=== PATIENT | male | born 1995 | race Caucasian/White ===

== ENCOUNTER 2016-11-02 05:45 | Emergency (ER) | payer OTHER ==
[~2016-11-02] VITALS: Ht 177.8 cm; Wt 77.6 kg
[2016-11-02 06:05] LABS: BASO % 0.4 % (0.0-1.0); EOS # 0.2 K/mm3 (0.0-0.50); EOS % 1.6 % (0.0-3.0); LARGE UNSTAINED CELL # 0.1 K/mm3 (0.0-0.4); LARGE UNSTAINED CELL % 0.7 % (0.0-4.0); LYMPH # 1.5 K/mm3 (1.5-6.5); LYMPH % 11.6 % (24.0-44.0); MEAN CORPUSCULAR HEMOGLOBIN 31.9 pg (27.0-33.0); MEAN CORPUSCULAR HGB CONC 34.3 g/dl (32.0-36.5); MEAN CORPUSCULAR VOLUME 92.9 fl (80.0-96.0); MONO # 0.5 K/mm3 (0.0-0.8); MONO % 4.2 % (0.0-5.0); NEUTROPHILS # 9.8 K/mm3 (1.8-7.7); NEUTROPHILS % 81.5 % (36.0-66.0); PLATELET COUNT, AUTOMATED 222 k/mm3 (150-450); RED CELL DISTRIBUTION WIDTH 13.1 % (11.5-14.5)
[2016-11-02] MEDS ORDERED: NS 1,000 ML IV ONE (06:15)
[2016-11-02 06:33] LABS: ALBUMIN 5.3 GM/DL (3.2-5.2); ALBUMIN/GLOBULIN RATIO 2.04 (1.00-1.93); ALKALINE PHOSPHATASE 70 U/L (45-117); ALT/SGPT 29 U/L (12-78); ANION GAP 8 MEQ/L (8-16); AST/SGOT 27 U/L (15-37); BILIRUBIN,DIRECT 0.3 MG/DL (0.0-0.2); BLOOD UREA NITROGEN 20 MG/DL (7-18); CALCIUM LEVEL 8.9 MG/DL (8.5-10.1); CARBON DIOXIDE LEVEL 28 MEQ/L (21-32); CHLORIDE LEVEL 107 MEQ/L (98-107); CREATININE FOR GFR 1.39 MG/DL (0.70-1.30); GLOMERULAR FILTRATION RATE > 60.0 (>60); GLUCOSE, FASTING 71 MG/DL (70-105); POTASSIUM SERUM 4.1 MEQ/L (3.5-5.1); SODIUM LEVEL 143 MEQ/L (136-145); TOTAL PROTEIN 7.9 GM/DL (6.4-8.2)
[2016-11-02 07:43] LABS: METHADONE URINE NEGATIVE (NEGATIVE)
[2016-11-02] MEDS ORDERED: LORazepam 2 MG/ML VIAL (J2060) IV STA (07:50)
--- NOTE | 2016-11-02 14:28 | ECGEPIP ---
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
[2016-11-02 14:33] VITALS: BP 166/85
== END 2016-11-02 14:36 | disposition home or self-care (01) ==
LOC: EDBD 05:45 → M ED 09:32
DX: T48.3X2A Poisoning by antitussives, intentional self-harm, initial encounter (principal); Y92.9 Unspecified place or not applicable; Y93.9 Activity, unspecified; F17.200 Nicotine dependence, unspecified, uncomplicated; Z79.899 Other long term (current) drug therapy
CPT/HCPCS: 36415; 51701; 80048; 80076; 80306; 82550; 84443; 85025; 93005; 93041; 94760; 96361; 96374; 99285; G0480; J2060

== ENCOUNTER 2016-11-02 21:13 | Inpatient (IN) | payer OTHER ==
[~2016-11-02] VITALS: Ht 177.8 cm; Wt 77.2 kg
[2016-11-02] MEDS ORDERED: LORazepam 2 MG/ML VIAL (J2060) As Ordered ONE (21:35)
[2016-11-02] MEDS ORDERED: LORazepam 2 MG/ML VIAL (J2060) IV STA ×2 (21:35→22:45)
[2016-11-02] MEDS ORDERED: NS 1,000 ML IV ONE (21:45)
[2016-11-02 22:03] LABS: BASO # 0.1 K/mm3 (0.0-0.2); BASO % 0.5 % (0.0-1.0); EOS # 0.2 K/mm3 (0.0-0.50); EOS % 1.6 % (0.0-3.0); LARGE UNSTAINED CELL # 0.1 K/mm3 (0.0-0.4); LARGE UNSTAINED CELL % 1.2 % (0.0-4.0); LYMPH # 2.4 K/mm3 (1.5-6.5); LYMPH % 19.4 % (24.0-44.0); MEAN CORPUSCULAR HEMOGLOBIN 31.3 pg (27.0-33.0); MEAN CORPUSCULAR HGB CONC 33.8 g/dl (32.0-36.5); MEAN CORPUSCULAR VOLUME 92.6 fl (80.0-96.0); MONO # 0.6 K/mm3 (0.0-0.8); MONO % 5.4 % (0.0-5.0); NEUTROPHILS # 8.4 K/mm3 (1.8-7.7); PLATELET COUNT, AUTOMATED 211 k/mm3 (150-450); RED CELL DISTRIBUTION WIDTH 13.1 % (11.5-14.5); WHITE BLOOD COUNT 11.7 K/mm3 (4.0-10.0)
--- NOTE | 2016-11-02 22:10 | REPUSA ---
CLINICAL HISTORY: altered mental status TECHNIQUE: Head CT without contrast COMPARISON: No study for comparison is available at the time of interpretation. Brain: No intracranial hemorrhage, hydrocephalus, acute parenchymal edema or evident mass. Calvarium: Unremarkable. Sinuses (partially visualized): Clear. IMPRESSION: No acute intracranial findings.
[2016-11-02 22:12] LABS: ALBUMIN 4.1 GM/DL (3.2-5.2); ALBUMIN/GLOBULIN RATIO 1.71 (1.00-1.93); ALKALINE PHOSPHATASE 61 U/L (45-117); ALT/SGPT 30 U/L (12-78); ANION GAP 10 MEQ/L (8-16); AST/SGOT 42 U/L (15-37); BILIRUBIN,DIRECT 0.2 MG/DL (0.0-0.2); BILIRUBIN,TOTAL 1.8 MG/DL (0.2-1.0); BLOOD UREA NITROGEN 22 MG/DL (7-18); CARBON DIOXIDE LEVEL 26 MEQ/L (21-32); CHLORIDE LEVEL 99 MEQ/L (98-107); CREATININE FOR GFR 1.28 MG/DL (0.70-1.30); GLOMERULAR FILTRATION RATE > 60.0 (>60); GLUCOSE, FASTING 97 MG/DL (70-105); POTASSIUM SERUM 3.2 MEQ/L (3.5-5.1); SODIUM LEVEL 135 MEQ/L (136-145); TOTAL PROTEIN 6.5 GM/DL (6.4-8.2)
[2016-11-02 22:23] LABS: METHADONE URINE NEGATIVE (NEGATIVE)
[2016-11-02] MEDS ORDERED: LR 1,000 ML IV ONE (23:00)
[2016-11-02 23:18] LABS: ABG BASE EXCESS -2.4 (-2.0-2.0); ABG HCO3 22.2 MEQ/L (22.0-26.0); ABG PARTIAL PRESSURE CO2 37.8 mmHg (35.0-45.0); ABG PARTIAL PRESSURE O2 107.6 mmHg (75.0-100.0); ABG STANDARD HCO3 22.5 MEQ/L (22.0-26.0); ABG TOTAL CO2 23.3 MEQ/L (22.0-29.0); ABG pH (ARTERIAL) 7.386 UNITS (7.350-7.450)
[2016-11-02 23:29] LABS: OSMOLALITY SERUM 276 MOSM/KG (275-295)
[2016-11-03] VITALS (11 sets, daily range): BP systolic 95–162; BP diastolic 57–82
[2016-11-03] MEDS: NS 1,000 ML IV SCH ×2 (01:27→07:56)
[2016-11-03] MEDS ORDERED: KCL 10MEQ IN 100ML SWI (KRUN) 10 MEQ in APPROPRIATE DILUENT 1 EA IV ONE ×2 (05:00)
[2016-11-03] MEDS ORDERED: KCL 10MEQ IN 100ML SWI (KRUN) 10 MEQ in APPROPRIATE DILUENT 1 EA IV SCH ×2 (05:00)
[2016-11-03 05:19] LABS: BASO % 0.6 % (0.0-1.0); EOS # 0.3 K/mm3 (0.0-0.50); EOS % 3.9 % (0.0-3.0); LARGE UNSTAINED CELL # 0.1 K/mm3 (0.0-0.4); LARGE UNSTAINED CELL % 1.8 % (0.0-4.0); LYMPH # 2.4 K/mm3 (1.5-6.5); LYMPH % 30.7 % (24.0-44.0); MEAN CORPUSCULAR HEMOGLOBIN 30.9 pg (27.0-33.0); MEAN CORPUSCULAR VOLUME 93.6 fl (80.0-96.0); MONO # 0.4 K/mm3 (0.0-0.8); MONO % 5.7 % (0.0-5.0); NEUTROPHILS # 4.2 K/mm3 (1.8-7.7); NEUTROPHILS % 57.3 % (36.0-66.0); PLATELET COUNT, AUTOMATED 174 k/mm3 (150-450); RED CELL DISTRIBUTION WIDTH 13.2 % (11.5-14.5); WHITE BLOOD COUNT 7.3 K/mm3 (4.0-10.0)
--- NOTE | 2016-11-03 05:25 | HPE ---
DATE OF ADMISSION: 11/03/2016 REASON FOR ADMISSION: Dextromethorphan overdose. HISTORY OF PRESENT ILLNESS The patient is 20-year-old male from [place] who presented earlier yesterday for a Delsym overdose, stated he took two bottles of Delsym. He was observed in the emergency room per poison control's recommendation, and then he was discharged home about 10 hours later under the care of [place]. They stated they watched him all day, and he started to become more lethargic and at times agitated and combative. They brought him back into the emergency room. In the emergency room the patient was very combative and agitated requiring some four-point restraints and 4 mg of Ativan. Toxicology screen was only positive for phencyclidine. The patient was started on fluids. He was given one liter bolus of normal saline and then he was started on lactated Ringer's. After 4 mg of Ativan, the patient was sleepy and sedated, unable to provide a history. Most of the history is obtained from the emergency room (ER) records and officer who was with him, who stated that the patient just finished training. He just came yesterday. He has not from the area, has no family in the area that they know of, and that he would be able to provide me with more information in the morning. The patient has no known medical history and is not on any prescribed medications. REVIEW OF SYSTEMS: Unable to obtain at this time due to the patient's sedation. PAST MEDICAL HISTORY: None. PAST SURGICAL HISTORY: None. ALLERGIES TO MEDICATIONS: None. PRESCRIBED MEDICATIONS: None. SOCIAL HISTORY: Unknown at this time. The patient is new to [place], just came in yesterday. FAMILY HISTORY: Unknown. PHYSICAL FINDINGS: Vitals: Temperature 98.2, pulse 83, respiratory rate 22, blood pressure is 135/82, pulse oximetry 96% on room air. HEENT: Pupils equal, round, reactive. Earlier per ER record, however, when he presented with an initially from overdose, he had pinpoint pupils. CARDIAC: Regular rate and rhythm. ABDOMEN: Soft, nontender, nondistended. EXTREMITIES: No clubbing, cyanosis or edema. LABORATORY FINDINGS: WBC 11.7, hemoglobin 13.8, hematocrit 40.7, platelet count 211. Sodium 135, potassium 3.2, chloride 99, BUN 22, creatinine 1.28, lactic acid 112. Bilirubin 1.8. Troponin less than 0.02. TSH 0.64. CK was 567. IMAGING: CT of the head was done which showed no acute intracranial abnormalities. ASSESSMENT AND PLAN: 1. Delsym overdose. Poison control was contacted at first and they recommended to watch the patient and use Ativan as needed for agitation. The patient was observed for 10 hours and then he was discharged. He was brought back into the emergency room due to increased agitation and becoming more combative. In the emergency room, he was given 4 mg of Ativan. He is currently resting comfortably, arousable but not able to answer any questions. We will continue to monitor. We will use Ativan as needed for agitation, sitter in the bedside while he is altered. We will continue to monitor the patient on telemetry. We will continue IV fluids. 2. Hypokalemia. We will replace and recheck. We will order a magnesium level. 3. Deep venous thrombosis (DVT) prophylaxis. Thromboembolism deterrent stockings (TEDs) and sequentials while in bed. The patient will be seen by Dr. Valiente in the morning. SILVIA
[2016-11-03 05:40] LABS: ALBUMIN 3.3 GM/DL (3.2-5.2); ALKALINE PHOSPHATASE 56 U/L (45-117); ALT/SGPT 26 U/L (12-78); ANION GAP 8 MEQ/L (8-16); AST/SGOT 38 U/L (15-37); BILIRUBIN,TOTAL 0.9 MG/DL (0.2-1.0); BLOOD UREA NITROGEN 18 MG/DL (7-18); CALCIUM LEVEL 7.7 MG/DL (8.5-10.1); CARBON DIOXIDE LEVEL 25 MEQ/L (21-32); CHLORIDE LEVEL 108 MEQ/L (98-107); CREATININE FOR GFR 1.14 MG/DL (0.70-1.30); GLOMERULAR FILTRATION RATE > 60.0 (>60); GLUCOSE, FASTING 103 MG/DL (70-105); MAGNESIUM LEVEL 2.2 MG/DL (1.8-2.4); POTASSIUM SERUM 3.4 MEQ/L (3.5-5.1); SODIUM LEVEL 141 MEQ/L (136-145); TOTAL PROTEIN 5.5 GM/DL (6.4-8.2)
--- NOTE | 2016-11-03 06:48 | REP ---
Clinical: Foreign body. Technique: Two supine views of the abdomen and pelvis. Findings: No radiodense foreign body is appreciated. Bowel gas pattern is normal. Skeletal structures are intact. No organomegaly. No abnormal calcifications. Impression: No foreign body appreciated. Signed by Agusto Cooley MD 11/03/2016 06:39 A
[2016-11-03] MEDS ORDERED: POTASSIUM CHLORIDE 10 MEQ SR TABLET PO ONE (07:00)
--- NOTE | 2016-11-03 08:12 | ECGEPIP ---
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
[2016-11-03] MEDS ORDERED: ENOXAPARIN 40 MG/0.4 ML SYRINGE (J1650) SC SCH (09:00)
--- NOTE | 2016-11-03 14:12 | DSES ---
DATE OF ADMISSION: 11/03/2016 DATE OF DISCHARGE: 11/03/2016 Please refer the history and physical by Dr. Florencia Anthony, for full intake, physical, labs and diagnostics. Briefly, the patient was admitted for overdose on Delsym. He also tested positive for PCP. He has been in the ICU overnight with no acute events noted on telemetry. Poison Control had been spoken to previously and did not feel that this patient needed to have 24 hours of telemetry and that the Delsym has a relatively short half life. He has continued to have some behavioral issues while in the ICU otherwise he appears to be medically stable. PHYSICAL EXAMINATION: Today temperature is 98, pulse 91, respiratory rate 16, blood pressure 148/70, SpO2 is 99% on room air. GENERAL: The patient appears to be in no acute distress. He is alert, oriented, and pleasant to talk to. HEENT: Unremarkable. LUNGS: Clear. HEART: Regular rate and rhythm. ABDOMEN: Soft. EXTREMITIES: No edema, no calf tenderness. LABORATORY DATA: White count 7.3, hemoglobin 13.1, platelets 174. Sodium 141, potassium 3.4, which was supplemented, chloride 108, bicarb 25, anion gap 9, BUN is 18, creatinine 1.14, glucose 103. AST 38, ALT 26, alkaline phosphatase 56. Troponin is less than 0.02 times two. TSH 0.645. ADMISSION/DISCHARGE DIAGNOSES: 1. Overdose. 2. Illicit substance abuse. 3. Underlying behavioral health issues. 4. Hypokalemia, which was repleted. DISCHARGE CONDITION: Good. DISPOSITION: The patient will be discharged to the care of inpatient [facility] for involuntary admission. DISCHARGE MEDICATIONS: None. DISCHARGE INSTRUCTIONS: 1. Discharge to inpatient mental health for involuntary admission. 2. Activity as tolerated. 3. Regular diet. 4. Seek medical attention if symptoms should worsen.
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
== END 2016-11-03 15:31 | DRG 918 ==
LOC: EDBD 21:13 → M ED 23:22 → M ED INP 11-03 00:39 → M ICU 11-03 01:21
PROVIDERS: ADMIT Internal Medicine; ATTEND Hospitalist
DX: T43.624A Poisoning by amphetamines, undetermined, initial encounter (principal); E87.6 Hypokalemia

== ENCOUNTER 2016-11-03 15:35 | Inpatient (IN) | payer OTHER ==
[~2016-11-03] VITALS: Ht 175.3 cm; Wt 77.3 kg
[2016-11-03 15:42] VITALS: BP 148/68
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
[2016-11-03] MEDS ORDERED: NICOTINE POLACRILEX 2 MG GUM PO PRN (17:00)
[2016-11-03] MEDS ORDERED: ACETAMINOPHEN TAB 650MG DOSE (2X325MG) PO PRN (17:00)
[2016-11-03] MEDS ORDERED: MOM 30ML SUSPENSION UDC PO PRN (17:00)
[2016-11-03] MEDS ORDERED: LORazepam 1 MG TAB PO PRN (17:00)
[2016-11-03] MEDS ORDERED: MAALOX 30 ML SUSP *UDC PO PRN (17:00)
[2016-11-03] MEDS ORDERED: LORazepam 2 MG/ML VIAL (J2060) IM ONE (18:30)
[2016-11-03] MEDS ORDERED: risperiDONE 2 MG TAB PO ONE (20:45)
[2016-11-03] MEDS ORDERED: MIRTAZAPINE 15 MG TAB PO ONE (20:45)
[2016-11-03] MEDS ORDERED: risperiDONE 1 MG TAB PO SCH (21:00)
[2016-11-04 06:51] VITALS: BP 144/78
[2016-11-04] MEDS ORDERED: risperiDONE 2 MG TAB PO SCH (09:00)
[2016-11-04] MEDS ORDERED: OLANZapine 5 MG TAB PO PRN (13:15)
--- NOTE | 2016-11-04 13:28 | MHIPNPDOC ---
[facility] Progress Note Progress Note DATE OF SERVICE: 11/04/16 HISTORY: day 2 of admission The patient a 20-year-old man presented to [facility] after ingesting a large amount of Coricidin and attempt to become "high". The patient was found wandering down the highway close to [facility] around the [place] area. The patient described that he had drunk in the court is seen to "get stronger". He described that he was feeling fairly distorted and confused. He stated that he been using Coricidin for quite some time. Much of his symptoms are difficult to ascertain at times as he became very irritated and agitated. He described that he had had a fairly difficult life and use Coricidin since the age of 12 in order to treat his depressed symptoms. He described prior to taking the Coricidin he become "suicidal 16 times" but never act on it due to the" triple C's". The patient described having difficulty remembering the date and confusion about his age. VITAL SIGNS: See below. NEW TEST RESULTS: na CURRENT MEDICATIONS: See below. MENTAL STATUS EXAMINATION: Patient is a 20-year old male, who is lying in bed, sits up when asked, has difficulty remaining upright, difficulty keeping his eyes open, wearing hospital garb, clean, tattoo on right arm. Speech: Is delayed, monosyllables. barely audible. Language skills are impaired Thought processes including: mostly clear, did not express delusions, FOI. Thought content: appropriate. Abstract reasoning, and computation: unable to assess. Description of associations: unable to assess. Description of abnormal or psychotic thoughts: states he hears one voice "sometimes" then immediately changed to "everyday", would not provide details. Judgment: very limited. Insight: poor Orientation: pt did not want to participate in the interview, unable to assess. Recent and remote memory: appears good Attention span and concentration: very poor Fund of knowledge: impaired Mood: "tired". Affect: congruent DIAGNOSES: 1. Unspecified psychotic disorder Rule out substance-induced 2. Borderline personality disorder, provisional 3. Unspecified depressive disorder Rule out substance-induced 4. Hallucinogen use disorder, severe, intoxicated 5. Cannabis use disorder, severe, in sustained remission ASSESSMENT:Pt has been asleep all day. Advised at 10 a.m. that documentation writer would return at 1 p.m. for interview. Pt unable to remain awake for interview. Offered no insight as to his state of mind or goals. Did offer that he joined the "to have a purpose in life". 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 He supports statements previously noted, that he has been depressed for a long time. He uses the dextromethorphan because it "slows down" the depression. He states he hears 1 voice but would not elaborate. He appears too medicated to participate. Pt did receive treatment for mental health issues in the past in [place] and was hospitalized in the past in [place] @ [facility] (?). Will try to obtain records if we can locate the hospital. Pt was informed that we will plan a SEAN meeting for Monday or Monday. Pt has not eaten today or been out of bed. He was encouraged to have lunch. MANAGEMENT PLAN: risperidone will be reduced, agitation meds will be placed. It appears that the [employer] has no intention of retaining this individual. Per a conversation DCP had with command, he was found face down in the road and high before he ever processed in from basic training. He has a very long history of substance abuse. His history indicates depression since age of 12. He denies abuse or trauma. TIME SPENT: 25 minutes. Vital Signs Vital Signs Date Time Temp Pulse Resp B/P (MAP) Pulse Ox O2 Delivery O2 Flow Rate FiO2 11/04/16 06:51 98.9 69 16 144/78 (100) 11/03/16 15:42 98 Room Air Current Medications Current Medications Acetaminophen (Tylenol Tab) 650 mg Q6HP PRN PO HEADACHE or DISCOMFORT; Start at 17:00; Stop 12/03/16 at 16:59 Al Hydrox/Mg Hydrox/Simethicone (Mylanta) 30 ml Q4HP PRN PO HEARTBURN/ INDIGESTION; Start 11/03/16 at 17:00; Stop 12/03/16 at 16:59 Lorazepam (Ativan) 1 mg TIDP PRN PO EXTREME ANXIETY; Start 11/03/16 at 17:00; Stop 11/10/16 at 16:59 Magnesium Hydroxide (Milk Of Magnesia) 30 ml DAILYPRN PRN PO CONSTIPATION; Start 11/03/16 at 17:00; Stop 12/03/16 at 16:59 Nicotine (Nicorette) 4 mg Q2HP PRN PO NICOTINE WITHDRAWAL; Start 11/03/16 at 17 :00; Stop 12/03/16 at 16:59 Risperidone (RisperDAL) 1 mg TID PO Last administered on 11/03/16 20:09; Start 11/03/16 at 21:00; Stop 11/04/16 at 09:19; Status DC Risperidone (RisperDAL) 2 mg BID PO Last administered on 11/04/16 09:51; Start 11/04/16 at 09:00; Stop 12/03/16 at 08:59 Allergies Coded Allergies: No Known Drug Allergy (Verified Allergy, Unknown, 11/02/16) Isabel Carter November 04, 2016 13:28
[2016-11-04 18:00] VITALS: BP 125/59
[2016-11-04] MEDS ORDERED: NICOTINE 21MG/24HR 1 EA TRANSDERMAL TD SCH (21:00)
[2016-11-04] MEDS: risperiDONE 0.5 MG TAB PO SCH (21:18)
--- NOTE | 2016-11-05 00:04 | HPE ---
DATE OF ADMISSION: 11/03/2016 Please refer to psychiatric history and evaluation for further details on this admission. This examination is <<0:07>> intended for medical issues, which may need treatment, followup or consult. This 20-year-old male, who was transferred from the intensive care unit (ICU) after having been stabilized and having been treated for an overdose of <<0:20>> and his urine also had tested positive for PCP. ETOH denied. Smokes one pack of cigarettes per day and dips one can per day. Recreational drug use none. PAST MEDICAL HISTORY: Negative. PAST SURGICAL HISTORY: Negative. HOME MEDICATIONS: None. FAMILY HISTORY: Noncontributory. LABORATORY STUDIES: White blood count (WBC) 7.3, hemoglobin 13.3, hematocrit 40.3, potassium 3.4, BUN and creatine 8 and 1.14, calcium is 7.7, AST 38, CPK 403. Will recheck in the a.m. Encourage the patient to drink fluids by mouth. Electrocardiogram (EKG) shows sinus rhythm, question of a U-wave. Will recheck electrocardiogram (EKG) in the a.m. 10-systems review was done. The patient had no complaints. No chest pain, shortness of breath, palpitations. He had no complaints whatsoever, was feeling well. pupils equal and reactive to light. Extraocular movements intact. Cornea and sclera clear. Conjunctiva normal. No facial asymmetry. Pharynx, tongue, and gums pink and moist. Tongue is midline. Neck is supple without lymphadenopathy. No thyromegaly. No goiter. Carotids 2+ without bruits. Chest is clear to auscultation without wheeze or retraction. Heart is regular without murmur or gallop. Abdomen benign. Bowel sounds positive. /Rectal: Not done. Extremities show full range of motion. No cyanosis, clubbing or edema. Gait is steady. Peripheral pulses equal and palpable bilaterally. Skin is warm and dry. OBJECTIVE: 20-year-old cooperative male, in no acute distress. Height 70 inches, weight 77 kilograms, body mass index (BMI) 24. Blood pressure 120/60, pulse 55, respirations 16, temperature 99. The patient is alert and oriented times three. Pupils equal and reactive to light good. Sclerae clear. Conjunctiva clear. No facial asymmetry. Pharynx, tongue and gums pink and moist. Tongue is midline. Neck is supple without lymphadenopathy. No thyromegaly, no goiter. Carotids 2+ without bruit. Chest clear to auscultation without wheezing or retraction. Heart is regular. Abdomen benign. Bowel sounds positive. Rectal not done. Extremities show equal strength, full range of motion, no cyanosis, clubbing or edema. Peripheral pulses equal and palpable bilaterally. Skin is warm and dry. IMPRESSION/PLAN: Hypokalemia, will recheck potassium in the a.m. Elevated CPK, recheck in the a.m. Encourage hydration and fluids. Psychiatric plan per psychiatry. Smoking cessation. Pain patches on.
[2016-11-05 06:29] VITALS: BP 128/75
[2016-11-05 06:36] LABS: BASO % 0.6 % (0.0-1.0); EOS # 0.2 K/mm3 (0.0-0.50); EOS % 4.3 % (0.0-3.0); LARGE UNSTAINED CELL # 0.1 K/mm3 (0.0-0.4); LARGE UNSTAINED CELL % 1.5 % (0.0-4.0); LYMPH # 1.3 K/mm3 (1.5-6.5); LYMPH % 26.5 % (24.0-44.0); MEAN CORPUSCULAR HEMOGLOBIN 31.6 pg (27.0-33.0); MEAN CORPUSCULAR HGB CONC 33.3 g/dl (32.0-36.5); MEAN CORPUSCULAR VOLUME 94.9 fl (80.0-96.0); MONO # 0.3 K/mm3 (0.0-0.8); MONO % 4.9 % (0.0-5.0); NEUTROPHILS # 3.1 K/mm3 (1.8-7.7); NEUTROPHILS % 62.2 % (36.0-66.0); PLATELET COUNT, AUTOMATED 178 k/mm3 (150-450); RED CELL DISTRIBUTION WIDTH 12.9 % (11.5-14.5)
[2016-11-05 06:52] LABS: ALBUMIN 3.3 GM/DL (3.2-5.2); ALBUMIN/GLOBULIN RATIO 1.32 (1.00-1.93); ALKALINE PHOSPHATASE 78 U/L (45-117); ALT/SGPT 26 U/L (12-78); ANION GAP 7 MEQ/L (8-16); AST/SGOT 25 U/L (15-37); BILIRUBIN,TOTAL 0.3 MG/DL (0.2-1.0); BLOOD UREA NITROGEN 8 MG/DL (7-18); CALCIUM LEVEL 8.1 MG/DL (8.5-10.1); CARBON DIOXIDE LEVEL 29 MEQ/L (21-32); CHLORIDE LEVEL 106 MEQ/L (98-107); CREATININE FOR GFR 0.78 MG/DL (0.70-1.30); GLOMERULAR FILTRATION RATE > 60.0 (>60); GLUCOSE, FASTING 111 MG/DL (70-105); SODIUM LEVEL 142 MEQ/L (136-145); TOTAL PROTEIN 5.8 GM/DL (6.4-8.2)
[2016-11-05] MEDS ORDERED: NICOTINE 21MG/24HR 1 EA TRANSDERMAL TD ONE (07:00)
[2016-11-05] MEDS: NICOTINE POLACRILEX 2 MG GUM PO PRN ×3 (10:04→20:08)
--- NOTE | 2016-11-05 16:54 | ECGEPIP ---
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 MORE ST ELEVATION ALSO NOW NOTED Electronically Signed On 11-05-2016 16:53:47 EDT by Alonso Marshall
[2016-11-05 18:00] VITALS: BP 135/79
[2016-11-05] MEDS: risperiDONE 0.5 MG TAB PO SCH (20:08)
[2016-11-05] MEDS ORDERED: NICOTINE 21MG/24HR 1 EA TRANSDERMAL TD SCH (21:00)
--- NOTE | 2016-11-05 22:30 | IPN ---
DATE: 11/05/2016 A 20-year-old male admitted after he ingested a large amount of Coricidin. The patient was highly intoxicated. OBJECTIVE: The patient is in bed at 11 a.m., has poor eye contact, soft monotone speech, not willing to engage in conversation/evaluation. Denied side effect from the medication. MENTAL STATUS EXAMINATION: The patient is dressed in [facility]. The patient is non cooperative. Has poor eye contact. Speech is soft and monotone. Mood is depressed and anxious. Affect is restricted. No evidence of delusions or hallucinations during the interview. Insight and judgment are poor. ASSESSMENT: 1. Unspecific psychotic disorder. 2. Hallucinogen use disorder, severe. 3. Cannabis use disorder. 4. Borderline personality disorder. PLAN: 1. Continue Risperdal 0.5 mg by mouth at bedtime. 2. Continue Zyprexa 5 mg by mouth as needed. 3. Continue close observation.
[2016-11-06 06:00] VITALS: BP 151/79
[2016-11-06] MEDS: NICOTINE 21MG/24HR 1 EA TRANSDERMAL TD SCH (08:17)
[2016-11-06] MEDS ORDERED: NICOTINE 21MG/24HR 1 EA TRANSDERMAL TD SCH (09:00)
[2016-11-06 18:00] VITALS: BP 138/81
[2016-11-06] MEDS: risperiDONE 0.5 MG TAB PO SCH (20:59)
--- NOTE | 2016-11-06 21:42 | IPN ---
DATE: 11/06/2016 A 20-year-old male admitted after he ingested a large amount of Coricidin. The patient was highly intoxicated. OBJECTIVE: The patient has improved a little bit. He is now out of the room and interacting better with other patients and staff. There is no evidence of psychotic symptoms. No auditory or visual hallucinations are noted. The patient does not have psychomotor retardation. MENTAL STATUS EXAMINATION: The patient dressed in [facility]. The patient is cooperative during the interview. Has fair eye contact. Speech is normal in rate, volume. Articulation is coherent and is spontaneous. Mood is depressed and anxious but improved. Affect is congruent with mood. There is no evidence of auditory or visual hallucinations. Memory, attention and concentration are fair. The patient is able to contract for safety during the interview. Insight and judgment are limited. ASSESSMENT: 1. Unspecified psychotic disorder. 2. Hallucinogen use disorder. 3. Cannabis use disorder. 4. Borderline personality disorder. PLAN: 1. Continue with Risperdal 0.5 mg by mouth at bedtime. 2. Continue with Zyprexa as needed for agitation/anxiety. 3. Continue close observation.
[2016-11-07 06:00] VITALS: BP 130/63
[2016-11-07 06:45] LABS: BASO % 0.9 % (0.0-1.0); EOS # 0.2 K/mm3 (0.0-0.50); EOS % 4.4 % (0.0-3.0); LARGE UNSTAINED CELL # 0.2 K/mm3 (0.0-0.4); LARGE UNSTAINED CELL % 3.8 % (0.0-4.0); LYMPH # 1.7 K/mm3 (1.5-6.5); LYMPH % 35.6 % (24.0-44.0); MEAN CORPUSCULAR HEMOGLOBIN 31.7 pg (27.0-33.0); MEAN CORPUSCULAR HGB CONC 33.8 g/dl (32.0-36.5); MEAN CORPUSCULAR VOLUME 93.8 fl (80.0-96.0); MONO # 0.4 K/mm3 (0.0-0.8); MONO % 7.6 % (0.0-5.0); NEUTROPHILS # 2.3 K/mm3 (1.8-7.7); NEUTROPHILS % 47.8 % (36.0-66.0); PLATELET COUNT, AUTOMATED 220 k/mm3 (150-450); RED CELL DISTRIBUTION WIDTH 13.1 % (11.5-14.5); WHITE BLOOD COUNT 4.8 K/mm3 (4.0-10.0)
[2016-11-07 07:07] LABS: ALBUMIN 3.6 GM/DL (3.2-5.2); ALBUMIN/GLOBULIN RATIO 1.13 (1.00-1.93); ALKALINE PHOSPHATASE 74 U/L (45-117); ALT/SGPT 37 U/L (12-78); ANION GAP 5 MEQ/L (8-16); AST/SGOT 19 U/L (15-37); BILIRUBIN,TOTAL 0.3 MG/DL (0.2-1.0); BLOOD UREA NITROGEN 8 MG/DL (7-18); CALCIUM LEVEL 8.7 MG/DL (8.5-10.1); CARBON DIOXIDE LEVEL 31 MEQ/L (21-32); CHLORIDE LEVEL 104 MEQ/L (98-107); CREATININE FOR GFR 0.89 MG/DL (0.70-1.30); GLOMERULAR FILTRATION RATE > 60.0 (>60); GLUCOSE, FASTING 109 MG/DL (70-105); POTASSIUM SERUM 4.5 MEQ/L (3.5-5.1); SODIUM LEVEL 140 MEQ/L (136-145); TOTAL PROTEIN 6.8 GM/DL (6.4-8.2)
[2016-11-07] MEDS: NICOTINE 21MG/24HR 1 EA TRANSDERMAL TD SCH (08:06)
--- NOTE | 2016-11-07 16:45 | IPN ---
DATE: 11/07/2016 A 20-year-old male admitted after he ingested a large amount of Coricidin. The patient was highly intoxicated. 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 The patient is interacting well with other patients and staff and has significantly improved from admission. The patient appears to have very low insight into his drug abuse. There is no evidence of psychotic symptoms. No confusion. No behavioral disturbances. MENTAL STATUS EXAMINATION: The patient is dressed in [facility]. The patient is cooperative during the interview. He has fair eye contact. His speech is normal in rate, volume, and articulation. He is coherent and is spontaneous. Mood is depressed and anxious but improved. Affect is congruent with mood. There is no evidence of auditory or visual hallucinations or any psychotic symptoms. Memory, attention and concentration are fair. The patient is able to contract for safety during the interview. Insight and judgment are limited. ASSESSMENT: 1. Unspecified psychotic disorder. 2. Hallucinogen use disorder. 3. Cannabis use disorder. 4. Borderline personality disorder. PLAN: 1. Continue with Risperdal 0.5 mg by mouth at bedtime. 2. Continue with Zyprexa as needed for agitation and anxiety. 3. Continue close observation.
[2016-11-07 18:00] VITALS: BP 118/68
[2016-11-07] MEDS: risperiDONE 0.5 MG TAB PO SCH (20:53)
[2016-11-08 06:16] VITALS: BP 126/87
[2016-11-08] MEDS: NICOTINE 21MG/24HR 1 EA TRANSDERMAL TD SCH (08:06)
[2016-11-08 08:16] VITALS: BP 120/80
--- NOTE | 2016-11-08 11:17 | MHIPNPDOC ---
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 Per EMR, patient has indicated notable psychiatric history including periods of agitation and multiple episodes of suicidal ideation. Yarding Engineer met with patient today to assess treatment progress on inpatient unit. Patient reports improvement to symptoms of anxiety and depression, denies suicidal and homicidal ideation, denies experiencing auditory or visual hallucinations, and denies urge to engage in self-injurious behavior. Patient indicates he is been sleeping well, denies challenges with concentration and focus, energy level, and indicates appetite is stable. Patient states current medication regimen is effective and he denies medication side effects. Patient informs aligner typewriter he feels "stable and clearer," and makes request for discharge, is aware that special services coordinator is making arrangements for chain of command meeting. Patient informs aligner typewriter that he is no longer wanting to remain in the [employer] and would like to be medically discharged noting, "I'm not stable enough to be a soldier, it's not smart for me to have a gun incase I start to hear the voices again if I relapse." Patient denies symptoms of physical pain and presents with no signs of acute distress at time of interaction. VITAL SIGNS: See below. NEW TEST RESULTS: Labs repeated on 11/07/16, refer to EMR for information on results. CURRENT MEDICATIONS: See below. 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 Thought processes including: Logical, goal-directed, linear. Thought content: Rational, logical, no tangentiality, paranoia, or perseverative thinking noted, however, expresses what appears to be unrealistic expectations pertaining to [employer] contract outcome Abstract reasoning, and computation: Appear adequate Description of associations: Appear intact Description of abnormal or psychotic thoughts: Denies suicidal or homicidal ideation, denies auditory or visual hallucinations, does not appear to be responding to internal stimuli, does not endorse bizarre or paranoid ideation, denies preoccupation with violence or obsessions Judgment: Poor Insight: Poor Orientation: A and O 3 Recent and remote memory: Limited, states he does not remember seeing previous providers Attention span and concentration: Limited Language: Appear adequate Fund of knowledge: Requires further evaluation Mood: "I'm okay, better." Patient denies symptoms of anxiety and depression, no mood lability noted at time of interaction. Affect: Blunted but brightens, congruent with mood DIAGNOSES: Unspecified psychotic disorder, rule out substance-induced psychotic disorder, rule out mood disorder, rule out substance-induced mood disorder. Polysubstance use disorder ASSESSMENT: Patient continues to adjust to unit, is visible, engages selectively with peers and staff, states he has been participating in unit programming. Patient indicates current medication regimen is working well, denies need for dosing adjustment, and denies experiencing medication side effects. Patient reports improvement to symptoms of anxiety and depression, denies suicidal thinking and verbalizes awareness of how to access supportive services on the unit if needed. Will continue to monitor patient's response to medications and monitor for side effects, will evaluate patient's safety, resolution of symptoms of psychosis, and discharge readiness. business development coordinator is making arrangements for [facility] meeting and is communicating with [facility] regarding patient's discharge plan. Patient is now indicating he would like to be med boarded out of , is aware that when prepared for discharge he will return to [facility] for safety check and participation in outpatient behavioral health services. MANAGEMENT PLAN: Continue Risperdal 0.5 mg po q hs Maintain safety precautions Patient to attend groups and participate in unit programming to develop coping strategies Engage patient in discharge planning process and arrange meeting with [facility] to evaluate safe discharge planning when appropriate Patient to follow up with [facility] upon discharge TIME SPENT: 35 minutes. Vital Signs Vital Signs Date Time Temp Pulse Resp B/P (MAP) Pulse Ox O2 Delivery O2 Flow Rate FiO2 11/08/16 08:16 84 16 120/80 (93) 99 Room Air 11/08/16 06:16 97.2 Current Medications Current Medications Acetaminophen (Tylenol Tab) 650 mg Q6HP PRN PO HEADACHE or DISCOMFORT; Start at 17:00; Stop 12/03/16 at 16:59 Al Hydrox/Mg Hydrox/Simethicone (Mylanta) 30 ml Q4HP PRN PO HEARTBURN/ INDIGESTION; Start 11/03/16 at 17:00; Stop 12/03/16 at 16:59 Lorazepam (Ativan) 1 mg TIDP PRN PO EXTREME ANXIETY; Start 11/03/16 at 17:00; Stop 11/10/16 at 16:59 Magnesium Hydroxide (Milk Of Magnesia) 30 ml DAILYPRN PRN PO CONSTIPATION; Start 11/03/16 at 17:00; Stop 12/03/16 at 16:59 Nicotine (Nicoderm Cq 21mg) 1 patch DAILY TD ; Start 11/06/16 at 09:00; Stop at 09:00; Status DC Nicotine (Nicoderm Cq 21mg) 1 patch DAILY TD Last administered on 11/08/16 08: 06; Start 11/06/16 at 09:00; Stop 12/06/16 at 08:59 Nicotine (Nicoderm Cq 21mg) 1 patch DAILY@2100 TD ; Start 11/05/16 at 21:00; Stop 11/05/16 at 22:31; Status DC Nicotine (Nicoderm Cq 21mg) 1 patch QHS TD ; Start 11/04/16 at 21:00; Stop 11/05 at 06:43; Status DC Nicotine (Nicorette) 4 mg Q2HP PRN PO NICOTINE WITHDRAWAL Last administered on 11/04/16 21:19; Start 11/03/16 at 17:00; Stop 11/04/16 at 21:28; Status DC Nicotine (Nicorette) 4 mg Q2HP PRN PO NICOTINE WITHDRAWAL Last administered on 11/05/16 20:08; Start 11/05/16 at 10:00; Stop 11/05/16 at 21:56; Status DC Olanzapine (ZyPREXA) 5 mg Q6HP PRN PO AGITATION Last administered on 11/05/16 08:46; Start 11/04/16 at 13:15; Stop 12/04/16 at 13:14 Risperidone (RisperDAL) 0.5 mg QHS PO Last administered on 11/07/16 20:53; Start 11/04/16 at 21:00; Stop 12/04/16 at 20:59 Risperidone (RisperDAL) 1 mg TID PO Last administered on 11/03/16 20:09; Start 11/03/16 at 21:00; Stop 11/04/16 at 09:19; Status DC Risperidone (RisperDAL) 2 mg BID PO Last administered on 11/04/16t 09:51; Start 11/04/16 at 09:00; Stop 11/04/16 at 13:15; Status DC Allergies Coded Allergies: No Known Drug Allergy (Verified Allergy, Unknown, 11/02/16) Shaina To November 08, 2016 11:17
[2016-11-08 18:15] VITALS: BP 129/68
[2016-11-08] MEDS: risperiDONE 0.5 MG TAB PO SCH (21:41)
[2016-11-09 06:25] VITALS: BP 124/74
[2016-11-09] MEDS: NICOTINE 21MG/24HR 1 EA TRANSDERMAL TD SCH (09:00)
--- NOTE | 2016-11-09 17:37 | MHIPNPDOC ---
[facility] Progress Note Progress Note DATE OF SERVICE: 11/09/16 HISTORY: day 7 of admission. Pt is much clearer now. Pt admitted with Coricidin overdose. VITAL SIGNS: See below. NEW TEST RESULTS: na CURRENT MEDICATIONS: See below. MENTAL STATUS EXAMINATION: Patient is a 20-year old male, who is wearing street attire, clean, cooperative and makes good eye contact. Speech: Is spontaneous, slightly pressured Language skills are grossly intact Thought processes including: linear Thought content: appropriate. Abstract reasoning, and computation: good Description of associations: loose. Description of abnormal or psychotic thoughts: pt is not currently psychotic and is able to provide a better history. Pt denies SI and HI. Judgment: fair Insight: fair. Orientation: oriented in all spheres. Recent and remote memory: intact Attention span and concentration: good Fund of knowledge: full Mood: anxious Affect: congruent, hypomanic DIAGNOSES: 1. Bipolar II disorder, current episode depressed. 2. Coricidine abuse ASSESSMENT:pt states he has no recollection of the events that preceded his admission. He is very nervous about the [facility] meeting tomorrow. He says he was dx with bipolar disorder at the age of 17. He was in a rehab and was prescribed lithium which was helpful to him. He was in treatment for coricidine abuse back then. He named many different medications he has taken including, celexa, lexapro, prozac, zyprexa, abilify and seroquel. He states the risperidone he is presently taking helps his mood and his sleep.. He made his first suicide attempt at age 14 by overdosing on 30 ambien. Some time later he attempted by cutting the antecubital space on his left arm with a box toe stitcher. there are numerous healed scars. He has made additional suicide attempts by overdosing. He denies alcohol abuse. He admits to abusing Vyvanse which was prescribed for him in the past. 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 He graduated HS. He lived in numerous halfway houses. Pt reports Paternal Grandfather had some type of mental illness and "flipped out ". He reports substance abuse is prevalent with his cousins and his uncle and his father. Denies any family h/o suicide. MANAGEMENT PLAN: CMP was WNL. Will begin taper of lithium for mood improvement and suicide prevention. Master tomorrow. Pt is worried if he is discharged from the service he will have problems getting hired anywhere. He is hoping to be given a second chance and be allowed to remain in the [employer]. He admits he did not disclose his past psychiatric history and thought he could leave rehab and join the and that would help him straighten out his life as it would give him purpose and training. He admits that now it was probable the wrong decision. He enjoyed basic training and all the physical demands of it. TIME SPENT: 15 minutes. Vital Signs Vital Signs Date Time Temp Pulse Resp B/P (MAP) Pulse Ox O2 Delivery O2 Flow Rate FiO2 11/09/16 06:25 98.1 95 16 124/74 (91) 11/08/16 08:16 99 Room Air Current Medications Current Medications Acetaminophen (Tylenol Tab) 650 mg Q6HP PRN PO HEADACHE or DISCOMFORT; Start at 17:00; Stop 12/03/16 at 16:59 Al Hydrox/Mg Hydrox/Simethicone (Mylanta) 30 ml Q4HP PRN PO HEARTBURN/ INDIGESTION; Start 11/03/16 at 17:00; Stop 12/03/16 at 16:59 Lorazepam (Ativan) 1 mg TIDP PRN PO EXTREME ANXIETY; Start 11/03/16 at 17:00; Stop 11/10/16 at 16:59 Magnesium Hydroxide (Milk Of Magnesia) 30 ml DAILYPRN PRN PO CONSTIPATION; Start 11/03/16 at 17:00; Stop 12/03/16 at 16:59 Nicotine (Nicoderm Cq 21mg) 1 patch DAILY TD ; Start 11/06/16 at 09:00; Stop at 09:00; Status DC Nicotine (Nicoderm Cq 21mg) 1 patch DAILY TD Last administered on 11/08/16t 08: 06; Start 11/06/16 at 09:00; Stop 12/06/16 at 08:59 Nicotine (Nicoderm Cq 21mg) 1 patch DAILY@2100 TD ; Start 11/05/16 at 21:00; Stop 11/05/16 at 22:31; Status DC Nicotine (Nicoderm Cq 21mg) 1 patch QHS TD ; Start 11/04/16 at 21:00; Stop 11/05 at 06:43; Status DC Nicotine (Nicorette) 4 mg Q2HP PRN PO NICOTINE WITHDRAWAL Last administered on 11/04/16 21:19; Start 11/03/16 at 17:00; Stop 11/04/16 at 21:28; Status DC Nicotine (Nicorette) 4 mg Q2HP PRN PO NICOTINE WITHDRAWAL Last administered on 11/05/16 20:08; Start 11/05/16 at 10:00; Stop 11/05/16 at 21:56; Status DC Olanzapine (ZyPREXA) 5 mg Q6HP PRN PO AGITATION Last administered on 11/05/16 08:46; Start 11/04/16 at 13:15; Stop 12/04/16 at 13:14 Risperidone (RisperDAL) 0.5 mg QHS PO Last administered on 11/08/16 21:41; Start 11/04/16 at 21:00; Stop 12/04/16 at 20:59 Risperidone (RisperDAL) 1 mg TID PO Last administered on 11/03/16 20:09; Start 11/03/16 at 21:00; Stop 11/04/16 at 09:19; Status DC Risperidone (RisperDAL) 2 mg BID PO Last administered on 11/04/16 09:51; Start 11/04/16 at 09:00; Stop 11/04/16 at 13:15; Status DC Allergies Coded Allergies: No Known Drug Allergy (Verified Allergy, Unknown, 11/02/16) Isabel Carter November 09, 2016 17:37
[2016-11-09 18:35] VITALS: BP 129/60
[2016-11-09] MEDS: risperiDONE 0.5 MG TAB PO SCH (21:01)
[2016-11-09] MEDS: LITHIUM CARBONATE 150 MG CAP PO SCH (21:02)
[2016-11-10 07:03] VITALS: BP 143/75
[2016-11-10] MEDS: NICOTINE 21MG/24HR 1 EA TRANSDERMAL TD SCH (09:00)
[2016-11-10] MEDS: LITHIUM CARBONATE 150 MG CAP PO SCH ×2 (09:08→21:08)
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
[2016-11-10 18:00] VITALS: BP 132/74
[2016-11-10] MEDS: risperiDONE 0.5 MG TAB PO SCH (21:08)
[2016-11-11 06:00] VITALS: BP 123/66
[2016-11-11] MEDS: LITHIUM CARBONATE 150 MG CAP PO SCH (08:09)
[2016-11-11] MEDS: NICOTINE 21MG/24HR 1 EA TRANSDERMAL TD SCH (08:09)
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
[2016-11-11 18:00] VITALS: BP 115/55
[2016-11-11] MEDS: risperiDONE 0.5 MG TAB PO SCH (20:48)
[2016-11-11] MEDS: LITHIUM CARBONATE 300 MG CAP PO SCH (20:48)
[2016-11-12 06:12] VITALS: BP 128/63
[2016-11-12] MEDS: NICOTINE 21MG/24HR 1 EA TRANSDERMAL TD SCH (09:00)
[2016-11-12] MEDS: LITHIUM CARBONATE 300 MG CAP PO SCH ×2 (09:28→21:02)
[2016-11-12 18:12] VITALS: BP 118/58
[2016-11-12] MEDS: risperiDONE 0.5 MG TAB PO SCH (21:02)
[2016-11-13 06:00] VITALS: BP 128/61
[2016-11-13] MEDS: NICOTINE 21MG/24HR 1 EA TRANSDERMAL TD SCH (08:09)
[2016-11-13] MEDS: LITHIUM CARBONATE 300 MG CAP PO SCH ×3 (08:10→20:46)
[2016-11-13 18:00] VITALS: BP 126/60
[2016-11-13] MEDS: risperiDONE 0.5 MG TAB PO SCH (20:46)
[2016-11-14 06:44] VITALS: BP 124/73
[2016-11-14] MEDS: NICOTINE 21MG/24HR 1 EA TRANSDERMAL TD SCH (08:26)
[2016-11-14] MEDS: LITHIUM CARBONATE 300 MG CAP PO SCH (08:27)
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
[2016-11-14] MEDS ORDERED: RISP0.5T3 PO (14:42)
[2016-11-14] MEDS ORDERED: LITH300C PO (14:43)
== END 2016-11-14 12:05 | disposition home or self-care (01) | DRG 885 ==
LOC: M PSY 15:35
PROVIDERS: ADMIT Psychiatry & Neurology Psychiatry; ATTEND Psychiatry & Neurology Psychiatry
DX: F31.9 Bipolar disorder, unspecified (principal); F17.210 Nicotine dependence, cigarettes, uncomplicated; E87.6 Hypokalemia

== ENCOUNTER 2016-12-05 00:59 | Inpatient (IN) | payer OTHER ==
[~2016-12-05] VITALS: Ht 177.8 cm; Wt 72.0 kg
[~2016-12-05 00:59] MED LIST: LITH300C PO; RISP0.5T3 PO
[2016-12-05] MEDS ORDERED: NS 1,000 ML IV ONE ×2 (01:15→02:45)
[2016-12-05 01:23] LABS: VENOUS BASE EXCESS 0.1 (-2.0-2.0); VENOUS O2 SATURATION 67.9 % (60.0-80.0); VENOUS PARTIAL PRESSURE CO2 55.2 mmHg (38.0-50.0); VENOUS PARTIAL PRESSURE O2 36.8 mmHg (30.0-50.0); VENOUS STANDARD HCO3 23.7 MEQ/L; VENOUS TOTAL CO2 29.2 MEQ/L (24.0-28.0)
[2016-12-05 01:32] LABS: BASO % 0.6 % (0.0-1.0); EOS # 0.2 K/mm3 (0.0-0.50); EOS % 3.4 % (0.0-3.0); LARGE UNSTAINED CELL # 0.1 K/mm3 (0.0-0.4); LARGE UNSTAINED CELL % 1.5 % (0.0-4.0); LYMPH # 2.1 K/mm3 (1.5-6.5); LYMPH % 28.4 % (24.0-44.0); MEAN CORPUSCULAR HEMOGLOBIN 32.2 pg (27.0-33.0); MEAN CORPUSCULAR HGB CONC 34.3 g/dl (32.0-36.5); MEAN CORPUSCULAR VOLUME 93.8 fl (80.0-96.0); MONO # 0.4 K/mm3 (0.0-0.8); MONO % 5.4 % (0.0-5.0); NEUTROPHILS # 4.2 K/mm3 (1.8-7.7); NEUTROPHILS % 60.6 % (36.0-66.0); PLATELET COUNT, AUTOMATED 213 k/mm3 (150-450); RED CELL DISTRIBUTION WIDTH 12.9 % (11.5-14.5); WHITE BLOOD COUNT 6.9 K/mm3 (4.0-10.0)
[2016-12-05 01:49] LABS: METHADONE URINE NEGATIVE (NEGATIVE)
[2016-12-05 01:52] LABS: ALBUMIN 4.6 GM/DL (3.2-5.2); ALBUMIN/GLOBULIN RATIO 1.35 (1.00-1.93); ALKALINE PHOSPHATASE 72 U/L (45-117); ALT/SGPT 21 U/L (12-78); ANION GAP 3 MEQ/L (8-16); AST/SGOT 25 U/L (15-37); BILIRUBIN,DIRECT 0.2 MG/DL (0.0-0.2); BILIRUBIN,TOTAL 0.5 MG/DL (0.2-1.0); BLOOD UREA NITROGEN 10 MG/DL (7-18); CARBON DIOXIDE LEVEL 32 MEQ/L (21-32); CHLORIDE LEVEL 108 MEQ/L (98-107); CREATININE FOR GFR 1.21 MG/DL (0.70-1.30); GLOMERULAR FILTRATION RATE > 60.0 (>60); GLUCOSE, FASTING 71 MG/DL (70-105); POTASSIUM SERUM 3.6 MEQ/L (3.5-5.1); SODIUM LEVEL 143 MEQ/L (136-145)
[2016-12-05] MEDS ORDERED: LORazepam 2 MG/ML VIAL (J2060) IV STA ×2 (04:04→05:40)
[2016-12-05] MEDS ORDERED: LORazepam 2 MG/ML VIAL (J2060) As Ordered ONE (04:05)
--- NOTE | 2016-12-05 05:51 | ECGEPIP ---
Stationary ECG Study [facility] - ED Test Date: 2016-12-05 Pat Name: RADHA FLOREZ Department: Room: - Gender: M [employer] Operator: BenitezB: [id number] Requested By: LAKESHA Bonds Order Number: [id number] Reading MD: Curt Verdugo Measurements Intervals [place] Rate: 80 P: 60 OH: 158 QRS: 77 QRSD: 95 T: 50 QT: 344 QTc: 398 Interpretive Statements SINUS RHYTHM Electronically Signed On 12-05-2016 5:50:54 EDT by Curt Verdugo
[2016-12-05 09:22] LABS: ABG BASE EXCESS 0.2 (-2.0-2.0); ABG PARTIAL PRESSURE O2 106.2 mmHg (75.0-100.0); ABG STANDARD HCO3 24.7 MEQ/L (22.0-26.0); ABG TOTAL CO2 26.3 MEQ/L (22.0-29.0); ABG pH (ARTERIAL) 7.403 UNITS (7.350-7.450)
[2016-12-05] MEDS ORDERED: RISP0.5T3 PO (09:28)
[2016-12-05] MEDS ORDERED: LITH300C PO (09:28)
[2016-12-05 10:00] LABS: ANION GAP 3 MEQ/L (8-16); BLOOD UREA NITROGEN 8 MG/DL (7-18); CALCIUM LEVEL 8.5 MG/DL (8.5-10.1); CARBON DIOXIDE LEVEL 28 MEQ/L (21-32); CHLORIDE LEVEL 111 MEQ/L (98-107); FREE T4 1.02 NG/DL (0.76-1.46); GLOMERULAR FILTRATION RATE > 60.0 (>60); GLUCOSE, FASTING 89 MG/DL (70-105); POTASSIUM SERUM 3.8 MEQ/L (3.5-5.1); SODIUM LEVEL 142 MEQ/L (136-145)
--- NOTE | 2016-12-05 12:13 | REP ---
Clinical: Altered mental status. Comparison: 11/02/2016 . Findings: The ventricles, sulci, and cisterns are normal in position and appearance. Avila-white differentiation is maintained. No acute intracranial hemorrhage, mass/mass effect, pathology or trauma/injury. No evidence for acute infarction. No extra-axial fluid collection. Calvarium is intact. Paranasal sinuses and mastoid air cells are clear. Impression: Normal noncontrast head CT. No evidence for acute intracranial pathology or trauma/injury. Signed by Agusto Cooley MD 12/05/2016 08:38 A
--- NOTE | 2016-12-05 14:47 | CR.PDOC ---
[facility] Consultation Consultation DATE OF CONSULTATION: Patient seen on December 05, 2016 at 9:30AM ATTENDING PHYSICIAN: Dr. Konstantin Grossman REASON FOR CONSULTATION/CHIEF COMPLAINT: Patient was brought into the ER by EMS for confusion HISTORY OF PRESENT ILLNESS: Patient is a 20 year old male with PMHx of Bipolar disorder who presented to the ER for confusion. His friend noted that he was confused at his living quarters at [place] and called EMS. Upon review of ER records and discussion, patient was initially confused and agitated upon arrival. Patient is unable to recall the exact details of what happened at the time. Currently patient is able to have a conversation and recite most the details of what has transpired so far. He noted that he has been taking cough syrup to get high. He also noted that he has thought about killing himself by cutting his brachial artery so that he would bleed out. When asked about why, he noted that he hates his life. Patient has been admitted in October of 2016 for similar presentation. However at that time patient was significantly sedated upon hospitalist evaluation. Patient denies any headache, nausea, vomiting, chest pain, shortness of breath, cough, abdominal pain, constipation, diarrhea or urinary symptoms. He denies any fevers or chills. ALLERGIES: Please see below. HOME MEDICATIONS: Please see below. PAST MEDICAL HISTORY: Bipolar disorder PAST SURGICAL HISTORY: None reported FAMILY HISTORY: - Mother and father with no reported medical problems - No history of malignancies SOCIAL HISTORY: - Denies the use of alcohol use; Smoker of 8 years at 0.5-1ppd; Substance use with cough medication and marijuana - Denies recent travel or sick contacts - Lives on [address] - Occupation; [employer] REVIEW OF SYSTEMS: Constitutional: Denies weight loss, change in appetite, or recent trauma Eyes: No visual changes or eye pain Ears, Nose, Throat: Denies nose bleeds, or difficulty swallowing Cardiovascular: Denies chest pain, sweating, or orthopnea Respiratory: Denies cough, wheezing, or shortness of breath GI: Gio nausea, vomiting, abdominal pain, diarrhea or constipation : Denies pain with urination or frequency Musculoskeletal: Denies joint pain or swelling Neuro / Psych: Denies muscle weakness or sensory loss Skin: No skin rashes noted All other review of systems negative; otherwise stated in history of present illness PHYSICAL EXAMINATION: - Vitals: BP 144/86, HR 66, RR 18, Sat 99%RA, Temp 96.9F - General: Lying in bed, No acute distress, Speaking in full sentences, AAOx3 - HEENT: NC, AT, PERRLA, EOMI - CVS: RRR, +S1S2, - Murmurs / rubs / gallops - Lungs: Fair air entry bilaterally, Clear to auscultation, No wheezing / rales / rhonchi - Abdomen: Soft, Non-distended, Non-tender, + Bowel sounds x 4 - Extremities: + PPx4, No lower extremity edema, No calf tenderness - Neuro: No focal motor or sensory deficit - Skin: No visible rashes LABORATORY DATA: Please see below. ASSESSMENT/PLAN: s/p Acute metabolic encephalopathy likely 2/2 substance abuse with cough medication - Presented after he had consumed that as an outpatient - Was brought in for confusion - Noted to be agitated in the ER and received Ativan - Currently physical reveals fully alert and oriented - UDS positive for PCP (Positive with cough medications; dextromethorphan) - Labs within normal limits - Will get Psychiatry to evaluate Suicidal ideation - Reports that he has thoughts of killing himself by cutting his brachial artery - Started 1 to 1 observation for suicidal ideation - c/w Suicidal precautions Bipolar disorder - Reports that he is on [place] and Risperidone - [place] level currently not therapeutic Elevated TSH - Follow up on Free T4 and Total T3 normal - Consider repeating lab work in 4-6 weeks DVT prophylaxis - Encourage ambulation - SCDs when bed bound Vital Signs/I&O Vital Signs Date Time Temp Pulse Resp B/P (MAP) Pulse Ox O2 Delivery O2 Flow Rate FiO2 12/05/16 12:15 66 16 144/86 (105) 99 12/05/16 11:38 Room Air 12/05/16 08:22 96.9 Laboratory Data Labs 24H Laboratory Tests 2 12/05/16 01:15: White Blood Count 6.9, Red Blood Count 5.13, Hemoglobin 16.5, Hematocrit 48.1, Mean Corpuscular Volume 93.8, Mean Corpuscular Hemoglobin 32.2, Mean Corpuscular Hemoglobin Concent 34.3, Red Cell Distribution Width 12.9, Platelet Count 213, Neutrophils (%) (Auto) 60.6, Lymphocytes (%) (Auto) 28.4, Monocytes ( %) (Auto) 5.4H, Eosinophils (%) (Auto) 3.4H, Basophils (%) (Auto) 0.6, Neutrophils # (Auto) 4.2, Lymphocytes # (Auto) 2.1, Monocytes # (Auto) 0.4, Eosinophils # (Auto) 0.2, Basophils # (Auto) 0.0, Large Unclassified Cells % 1.5 , Large Unclassified Cells # 0.1, Blood Gas Bicarbonate Standard 23.7, Venous Blood pH 7.316L, Venous Blood Partial Pressure CO2 55.2H, Venous Blood Partial Pressure O2 36.8, Venous Blood Total Carbon Dioxide 29.2H, Venous Blood HCO3 27.5H, Venous Blood Oxygen Saturation 67.9, Venous Blood Base Excess 0.1, Anion Gap 3L, Glomerular Filtration Rate > 60.0, Osmolality 296H, Lactic Acid Level 1.1, Calcium Level 9.0, Aspartate Amino Transf (AST/SGOT) 25, Alanine Aminotransferase (ALT/SGPT) 21, Alkaline Phosphatase 72, Total Bilirubin 0.5, Direct Bilirubin 0.2, Total Creatine Kinase 172, Total Protein 8.0, Albumin 4.6 , Albumin/Globulin Ratio 1.35, Thyroid Stimulating Hormone (TSH) 4.210H, Salicylates Level < 1.7L, Urine Amphetamines Screen NEGATIVE, Urine Benzodiazepines Screen NEGATIVE, Urine Opiates Screen NEGATIVE, Urine Methadone Screen NEGATIVE, Acetaminophen Level < 2.0L, Urine Barbiturates Screen NEGATIVE , Urine Phencyclidine Screen POSITIVEH, [place] Level < 0.20L, Urine Cocaine Metabolite Screen NEGATIVE, Urine Cannabinoids Screen NEGATIVE, Ethyl Alcohol Level 0.003 12/05/16 02:04: Bedside Glucose (Misc Panel) 89 12/05/16 04:11: Total Creatine Kinase 135 12/05/16 09:13: Blood Gas Bicarbonate Standard 24.7, Arterial Blood pH 7.403, Arterial Blood Partial Pressure CO2 41.0, Arterial Blood Partial Pressure O2 106.2H, Arterial Blood Total CO2 26.3, Arterial Blood HCO3 25.0, Arterial Blood Base Excess 0.2, Arterial Blood Oxygen Saturation 98.1 12/05/16 09:24: Anion Gap 3L, Glomerular Filtration Rate > 60.0, Blood Urea Nitrogen 8, Creatinine 1.10, Sodium Level 142, Potassium Level 3.8, Chloride Level 111H, Carbon Dioxide Level 28, Calcium Level 8.5, Free Thyroxine 1.02, Total Triiodothyronine 120.0 CBC/BMP Laboratory Tests 12/05/16 01:15 Red Blood Count 5.13, Mean Corpuscular Volume 93.8, Mean Corpuscular Hemoglobin 32.2, Mean Corpuscular Hemoglobin Concent 34.3, Red Cell Distribution Width 12.9 , Neutrophils (%) (Auto) 60.6, Lymphocytes (%) (Auto) 28.4, Monocytes (%) (Auto ) 5.4 H, Eosinophils (%) (Auto) 3.4 H, Basophils (%) (Auto) 0.6, Neutrophils # ( Auto) 4.2, Lymphocytes # (Auto) 2.1, Monocytes # (Auto) 0.4, Eosinophils # (Auto ) 0.2, Basophils # (Auto) 0.0 12/05/16 09:24 Calcium Level 8.5 Allergies Coded Allergies: No Known Drug Allergy (Verified Allergy, Unknown, 11/02/16) Home Medications Scheduled (Risperidone) 0.5 Mg Tab, 0.5 MG PO QHS, (Reported) [place] Carbonate ([place] Carbonate) 300 Mg Cap, 300 MG PO BID, (Reported) OMAR WERNER MD Dec 05, 2016 14:47
[2016-12-05 15:45] LABS: ANION GAP 4 MEQ/L (8-16); BLOOD UREA NITROGEN 8 MG/DL (7-18); CALCIUM LEVEL 8.6 MG/DL (8.5-10.1); CARBON DIOXIDE LEVEL 28 MEQ/L (21-32); CHLORIDE LEVEL 110 MEQ/L (98-107); CREATININE FOR GFR 1.05 MG/DL (0.70-1.30); GLOMERULAR FILTRATION RATE > 60.0 (>60); GLUCOSE, FASTING 98 MG/DL (70-105); POTASSIUM SERUM 3.8 MEQ/L (3.5-5.1); SODIUM LEVEL 142 MEQ/L (136-145)
[2016-12-05 18:05] VITALS: BP 148/93
[2016-12-05] MEDS ORDERED: HALOPERIDOL 2 MG TAB PO STA (19:03)
[2016-12-05] MEDS ORDERED: LORazepam 2 MG TAB PO STA (19:03)
[2016-12-05] MEDS ORDERED: diphenhydrAMINE 50 MG CAP PO STA (19:03)
[2016-12-05] MEDS ORDERED: ACETAMINOPHEN TAB 650MG DOSE (2X325MG) PO PRN (19:15)
[2016-12-05] MEDS ORDERED: MOM 30ML SUSPENSION UDC PO PRN (19:15)
[2016-12-05] MEDS ORDERED: MAALOX 30 ML SUSP *UDC PO PRN (19:15)
[2016-12-05] MEDS: LITHIUM CARBONATE 300 MG CAP PO SCH (20:48)
[2016-12-05] MEDS ORDERED: risperiDONE 0.5 MG TAB PO SCH (21:00)
[2016-12-05 21:04] LABS: ANION GAP 4 MEQ/L (8-16); BLOOD UREA NITROGEN 9 MG/DL (7-18); CALCIUM LEVEL 8.7 MG/DL (8.5-10.1); CARBON DIOXIDE LEVEL 29 MEQ/L (21-32); CHLORIDE LEVEL 109 MEQ/L (98-107); CREATININE FOR GFR 1.07 MG/DL (0.70-1.30); GLOMERULAR FILTRATION RATE > 60.0 (>60); GLUCOSE, FASTING 105 MG/DL (70-105); POTASSIUM SERUM 3.8 MEQ/L (3.5-5.1); SODIUM LEVEL 142 MEQ/L (136-145)
[2016-12-05] MEDS ORDERED: zolPIDEM TARTRATE 10MG TAB PO PRN (21:15)
[2016-12-06 05:33] LABS: MEAN CORPUSCULAR HEMOGLOBIN 32.1 pg (27.0-33.0); MEAN CORPUSCULAR HGB CONC 34.1 g/dl (32.0-36.5); MEAN CORPUSCULAR VOLUME 93.9 fl (80.0-96.0); RED CELL DISTRIBUTION WIDTH 12.9 % (11.5-14.5); WHITE BLOOD COUNT 5.2 K/mm3 (4.0-10.0)
[2016-12-06 05:51] LABS: ANION GAP 2 MEQ/L (8-16); BLOOD UREA NITROGEN 12 MG/DL (7-18); CALCIUM LEVEL 8.8 MG/DL (8.5-10.1); CARBON DIOXIDE LEVEL 31 MEQ/L (21-32); CHLORIDE LEVEL 110 MEQ/L (98-107); CREATININE FOR GFR 1.04 MG/DL (0.70-1.30); GLOMERULAR FILTRATION RATE > 60.0 (>60); GLUCOSE, FASTING 85 MG/DL (70-105); MAGNESIUM LEVEL 2.3 MG/DL (1.8-2.4); POTASSIUM SERUM 4.1 MEQ/L (3.5-5.1); SODIUM LEVEL 143 MEQ/L (136-145)
[2016-12-06 06:31] VITALS: BP 136/86
[2016-12-06 08:58] LABS: ANION GAP 1 MEQ/L (8-16); BLOOD UREA NITROGEN 12 MG/DL (7-18); CALCIUM LEVEL 8.8 MG/DL (8.5-10.1); CARBON DIOXIDE LEVEL 30 MEQ/L (21-32); CHLORIDE LEVEL 109 MEQ/L (98-107); CREATININE FOR GFR 1.15 MG/DL (0.70-1.30); GLOMERULAR FILTRATION RATE > 60.0 (>60); GLUCOSE, FASTING 89 MG/DL (70-105); POTASSIUM SERUM 4.2 MEQ/L (3.5-5.1); SODIUM LEVEL 140 MEQ/L (136-145)
[2016-12-06] MEDS: LITHIUM CARBONATE 300 MG CAP PO SCH ×3 (09:00→20:28)
[2016-12-06] MEDS: NICOTINE 14 MG/24 HR TRANSDERMAL TD SCH (09:00)
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
[2016-12-06] MEDS ORDERED: risperiDONE 1 MG M-TAB PO ONE (13:15)
[2016-12-06] MEDS ORDERED: LORazepam 2 MG TAB PO STA (13:50)
[2016-12-06 17:14] LABS: ANION GAP 4 MEQ/L (8-16); BLOOD UREA NITROGEN 13 MG/DL (7-18); CALCIUM LEVEL 8.6 MG/DL (8.5-10.1); CARBON DIOXIDE LEVEL 30 MEQ/L (21-32); CHLORIDE LEVEL 106 MEQ/L (98-107); CREATININE FOR GFR 0.99 MG/DL (0.70-1.30); GLOMERULAR FILTRATION RATE > 60.0 (>60); GLUCOSE, FASTING 93 MG/DL (70-105); POTASSIUM SERUM 4.1 MEQ/L (3.5-5.1); SODIUM LEVEL 140 MEQ/L (136-145)
[2016-12-06 18:21] VITALS: BP 112/58
[2016-12-06] MEDS ORDERED: QUEtiapine FUMARATE 100 MG TAB PO SCH (21:00)
[2016-12-06] MEDS ORDERED: risperiDONE 1 MG TAB PO SCH (21:00)
[2016-12-06] MEDS ORDERED: traZODone 50 MG TAB PO PRN (21:00)
[2016-12-06] MEDS ORDERED: DIVALPROEX 250MG *ER* TAB PO SCH (21:00)
[2016-12-06 21:27] LABS: ANION GAP 6 MEQ/L (8-16); BLOOD UREA NITROGEN 13 MG/DL (7-18); CALCIUM LEVEL 8.2 MG/DL (8.5-10.1); CARBON DIOXIDE LEVEL 26 MEQ/L (21-32); CHLORIDE LEVEL 105 MEQ/L (98-107); CREATININE FOR GFR 1.12 MG/DL (0.70-1.30); GLOMERULAR FILTRATION RATE > 60.0 (>60); GLUCOSE, FASTING 128 MG/DL (70-105); POTASSIUM SERUM 3.5 MEQ/L (3.5-5.1); SODIUM LEVEL 137 MEQ/L (136-145)
[2016-12-07 05:35] LABS: MEAN CORPUSCULAR HEMOGLOBIN 32.2 pg (27.0-33.0); MEAN CORPUSCULAR HGB CONC 34.9 g/dl (32.0-36.5); MEAN CORPUSCULAR VOLUME 92.3 fl (80.0-96.0); RED CELL DISTRIBUTION WIDTH 12.5 % (11.5-14.5); WHITE BLOOD COUNT 7.4 K/mm3 (4.0-10.0)
[2016-12-07 06:00] LABS: ANION GAP 4 MEQ/L (8-16); BLOOD UREA NITROGEN 13 MG/DL (7-18); CALCIUM LEVEL 8.4 MG/DL (8.5-10.1); CARBON DIOXIDE LEVEL 29 MEQ/L (21-32); CHLORIDE LEVEL 107 MEQ/L (98-107); CREATININE FOR GFR 1.03 MG/DL (0.70-1.30); GLOMERULAR FILTRATION RATE > 60.0 (>60); GLUCOSE, FASTING 104 MG/DL (70-105); MAGNESIUM LEVEL 2.4 MG/DL (1.8-2.4); POTASSIUM SERUM 3.7 MEQ/L (3.5-5.1); SODIUM LEVEL 140 MEQ/L (136-145)
[2016-12-07 06:32] VITALS: BP 142/76
[2016-12-07] MEDS: LITHIUM CARBONATE 300 MG CAP PO SCH ×2 (08:44→20:27)
[2016-12-07] MEDS: NICOTINE 14 MG/24 HR TRANSDERMAL TD SCH (08:45)
[2016-12-07] MEDS ORDERED: QUEtiapine FUMARATE 12.5 MG HALF-TAB PO PRN ×2 (12:00→13:30)
[2016-12-07] MEDS: LORazepam 1 MG TAB PO PRN (12:07)
[2016-12-07 13:15] VITALS: BP 150/58
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
[2016-12-07] MEDS ORDERED: QUEtiapine FUMERATE XR 50 MG TABER PO SCH (18:00)
[2016-12-07 18:15] VITALS: BP 138/78
[2016-12-07] MEDS ORDERED: OLANZapine 10 MG TAB PO ONE (21:00)
[2016-12-07] MEDS ORDERED: DIVALPROEX 500MG *ER* TAB PO SCH (21:00)
[2016-12-07] MEDS: OLANZapine 5 MG TAB PO PRN (21:13)
[2016-12-08 06:46] LABS: MEAN CORPUSCULAR HEMOGLOBIN 31.8 pg (27.0-33.0); MEAN CORPUSCULAR HGB CONC 34.4 g/dl (32.0-36.5); MEAN CORPUSCULAR VOLUME 92.5 fl (80.0-96.0); RED CELL DISTRIBUTION WIDTH 12.8 % (11.5-14.5); WHITE BLOOD COUNT 5.9 K/mm3 (4.0-10.0)
[2016-12-08 06:49] VITALS: BP 122/71
[2016-12-08] MEDS ORDERED: QUEtiapine FUMARATE 50 MG TAB PO SCH (09:00)
[2016-12-08] MEDS: LITHIUM CARBONATE 300 MG CAP PO SCH (09:08)
[2016-12-08] MEDS: NICOTINE 14 MG/24 HR TRANSDERMAL TD SCH (09:08)
[2016-12-08] MEDS: OLANZapine 5 MG TAB PO PRN (09:11)
--- NOTE | 2016-12-08 09:47 | MHIPNPDOC ---
[facility] Progress Note Progress Note DATE OF SERVICE: 12/08/16 HISTORY: day 4 of admission, following overdose on dextromethorphan VITAL SIGNS: See below. NEW TEST RESULTS: na CURRENT MEDICATIONS: See below. MENTAL STATUS EXAMINATION: Patient is a 20-year old male, who is dressed in hospital attire, lying in bed after breakfast, acts tired, interacts easily. Speech: Is clear, coherent, spontaneous Language skills are good Thought processes including: linear Thought content: appropriate. Abstract reasoning, and computation: good. Description of associations: good. Description of abnormal or psychotic thoughts: pt is not hearing voices, pt denies thoughts or intent of suicide. Judgment: poor Insight:limited, Orientation: well oriented in all spheres. Recent and remote memory: intact Attention span and concentration: adequate Fund of knowledge: full. Mood: euthymic. Affect: smiling, laughing. 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 He is not truthful when speaking to junior underwriter and reporting his feelings. Denies any anger related to call with father last night. Did not report any of the information documented by the staff and in fact contradicted what was written. Pt is displaying axis II behavior and not accepting responsibility for his role in improving his situation in life. He is motivated for substance abuse treatment but feels medical staff owes it to him to keep him medicated while he does it. he is not in withdrawal but will display aggressive posturing toward himself and report hearing voices to get medication. Pt was asked to shower and prepare for group today. He was also informed he would be called to attend team in 30 mins and asked to be showered by then. He appeared in pj's clearly not adhering to requests made of him. In team he was informed there will be a SEAN meeting today and tomorrow he would be escorted to treatment at [facility] in [place] for substance abuse. Pt remains high risk for suicide and relapse. MANAGEMENT PLAN: continue room restriction, enc attendance at groups, maintain 1 :1 observation, Depakote increased to 750 mg at hs, Seroquel xr increased to 100 mg at 1800 with food. Discharge will take place early tomorrow am at 0500. Discharge orders will be placed today to allow this to occur seamlessly. Pt did attend the SEAN meeting and is aware that he will be escorted by 2 service members until he is inside the facility at [facility]. He understands he is not to bring any contraband onto the plan or the facility. He has prn medication available if he needs it in the a.m. Labs were drawn today for depakote and lithium level. TIME SPENT: 30 minutes. Vital Signs Vital Signs Date Time Temp Pulse Resp B/P (MAP) Pulse Ox O2 Delivery O2 Flow Rate FiO2 12/08/16 06:49 98.8 68 20 122/71 (88) 12/07/16 18:15 100 12/07/16 13:15 Room Air Laboratory Data 24H Labs Laboratory Tests 2 12/08/16 06:23: Magnesium Level 2.1 CBC/BMP Laboratory Tests 12/08/16 06:23 Red Blood Count 4.61, Mean Corpuscular Volume 92.5, Mean Corpuscular Hemoglobin 31.8, Mean Corpuscular Hemoglobin Concent 34.4, Red Cell Distribution Width 12.8 Current Medications Current Medications Acetaminophen (Tylenol Tab) 650 mg Q6HP PRN PO HEADACHE or DISCOMFORT; Start at 19:15; Stop 01/04/17 at 19:14 Al Hydrox/Mg Hydrox/Simethicone (Mylanta) 30 ml Q4HP PRN PO HEARTBURN/ INDIGESTION; Start 12/05/16 at 19:15; Stop 01/04/17 at 19:14 Diphenhydramine HCl (Benadryl) 50 mg STAT STAT PO Last administered on 19:21; Start 12/05/16 at 19:03; Stop 12/05/16 at 19:11; Status DC Divalproex Sodium (Depakote Er) 250 mg QHS PO Last administered on 12/06/16 20 :28; Start 12/06/16 at 21:00; Stop 12/07/16 at 12:00; Status DC Divalproex Sodium (Depakote Er) 500 mg QHS PO Last administered on 12/07/16 20 :27; Start 12/07/16 at 21:00; Stop 12/08/16 at 09:36; Status DC Haloperidol (Haldol) 5 mg STAT STAT PO Last administered on 12/05/16 19:20; Start 12/05/16 at 19:03; Stop 12/05/16 at 19:11; Status DC Home Med (Med Rec Complete!) ASDIRECTED XX ; Start 12/05/16 at 09:30; Stop at 09:30; Status DC [place] Carbonate ([place] Carbonate) 300 mg BID PO Last administered on 20:48; Start 12/05/16 at 21:00; Stop 12/06/16 at 09:33; Status DC [place] Carbonate ([place] Carbonate) 300 mg BID PO Last administered on 09:08; Start 12/06/16 at 09:00; Stop 01/05/17 at 08:59 Lorazepam (Ativan) 1 mg DAILYPRN PRN PO ANXIETY/AGITATION Last administered on 12/07/16 12:07; Start 12/07/16 at 12:00; Stop 12/14/16 at 11:59 Lorazepam (Ativan) 1 mg STAT STAT IV Last administered on 12/05/16 04:08; Start 12/05/16 at 04:04; Stop 12/05/16 at 04:05; Status DC Lorazepam (Ativan) 2 mg STAT STAT IV Last administered on 12/05/16 05:46; Start 12/05/16 at 05:40; Stop 12/05/16 at 05:41; Status DC Lorazepam (Ativan) 2 mg STAT STAT PO Last administered on 12/05/16 19:21; Start 12/05/16 at 19:03; Stop 12/05/16 at 19:11; Status DC Lorazepam (Ativan) 2 mg STAT STAT PO Last administered on 12/06/16 14:07; Start 12/06/16 at 13:50; Stop 12/06/16 at 13:51; Status DC Magnesium Hydroxide (Milk Of Magnesia) 30 ml DAILYPRN PRN PO CONSTIPATION; Start 12/05/16 at 19:15; Stop 01/04/17 at 19:14 Nicotine (Nicoderm Cq 14mg) 1 patch DAILY TD Last administered on 12/08/16 09: 08; Start 12/06/16 at 09:00; Stop 01/05/17 at 08:59 Olanzapine (ZyPREXA) 5 mg Q6HP PRN PO ANXIETY/AGITATION Last administered on 09:11; Start 12/07/16 at 20:00; Stop 01/06/17 at 19:59 Quetiapine Fumarate (SEROquel XR) 100 mg QHS PO ; Start 12/08/16 at 18:00; Stop 01/07/17 at 17:59; Status UNV Quetiapine Fumarate (SEROquel) 12.5 mg Q12HP PRN PO ANXIETY/AGITATION Last administered on 12/07/16 13:24; Start 12/07/16 at 12:00; Stop 12/07/16 at 13:27 ; Status DC Quetiapine Fumarate (SEROquel) 12.5 mg Q6HP PRN PO ANXIETY/AGITATION; Start at 13:30; Stop 12/07/16 at 20:22; Status DC Quetiapine Fumarate (SEROquel) 50 mg DAILY PO ; Start 12/08/16 at 09:00; Stop at 09:00; Status DC Quetiapine Fumarate (SEROquel) 100 mg QHS PO Last administered on 12/06/16 20: 27; Start 12/06/16 at 21:00; Stop 12/07/16 at 11:59; Status DC Quetiapine Fumarate (Seroquel Xr) 50 mg DAILY@1800 PO Last administered on 12/07 17:37; Start 12/07/16 at 18:00; Stop 12/08/16 at 09:36; Status DC Risperidone (RisperDAL) 0.5 mg QHS PO Last administered on 12/05/16 20:48; Start 12/05/16 at 21:00; Stop 12/06/16 at 12:56; Status DC Risperidone (RisperDAL) 1 mg QHS PO ; Start 12/06/16 at 21:00; Stop 01/05/17 at 20:59; Status Cancel Trazodone HCl (Desyrel) 50 mg QHS PRN PO insomnia Last administered on 20:28; Start 12/06/16 at 21:00; Stop 12/07/16 at 11:59; Status DC Zolpidem Tartrate (Ambien) 10 mg QHSP PRN PO INSOMNIA; Start 12/05/16 at 21:15 ; Stop 12/12/16 at 21:14; Status Cancel Allergies Coded Allergies: No Known Drug Allergy (Verified Allergy, Unknown, 11/02/16) Isabel Carter Dec 08, 2016 09:47
[2016-12-08] MEDS ORDERED: QUEtiapine FUMARATE 12.5 MG HALF-TAB PO PRN (11:15)
[2016-12-08 12:55] LABS: LITHIUM LEVEL 0.53 MEQ/L (0.60-1.20)
[2016-12-08] MEDS: LORazepam 1 MG TAB PO PRN (13:33)
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
[2016-12-08 18:00] VITALS: BP 104/63
[2016-12-08] MEDS ORDERED: QUEtiapine FUMERATE XR 50 MG TABER PO SCH (18:00)
[2016-12-08] MEDS ORDERED: DIVALPROEX 250MG *ER* TAB PO SCH (21:00)
[2016-12-09] MEDS ORDERED: LITHIUM CARBONATE 300 MG CAP PO ONE (04:00)
== END 2016-12-09 04:15 | DRG 885 ==
LOC: M ED 02:06 → M ED INP 16:28 → M PSY 17:59
PROVIDERS: ADMIT Psychiatry & Neurology Psychiatry; ATTEND Psychiatry & Neurology Psychiatry
DX: F31.9 Bipolar disorder, unspecified (principal); F15.20 Other stimulant dependence, uncomplicated; R45.851 Suicidal ideations; F17.200 Nicotine dependence, unspecified, uncomplicated; F60.3 Borderline personality disorder